=== PATIENT | male | born 1995 | race Caucasian/White ===

== ENCOUNTER 2022-02-23 10:04 | Inpatient (IN) | payer MEDICAID ==
[~2022-02-23] VITALS: Ht 172.7 cm; Wt 70.8 kg
[2022-02-23 10:12] VITALS: BP 152/106
[2022-02-23 10:43] LABS: BASO % 0.3 % (0.0-1.0); EOS # 0.1 10*3/uL (0.0-0.4); EOS % 0.8 % (1.0-4.0); HEMATOCRIT 42.2 % (42.0-52.0); LYMPH # 1.9 10*3/uL (1.3-4.4); MEAN CELL VOLUME 89.8 fl (80.0-94.0); MEAN CORPUSCULAR HGB 31.5 pg (27.0-31.0); MEAN CORPUSCULAR HGB CONC 35.1 g/dl (33.0-37.0); MEAN PLATELET VOLUME 8.7 fl (9.6-12.3); MONO # 0.4 10*3/uL (0.1-1.0); MONO % 5.5 % (3.0-9.0); NEUT % 63.1 % (47.0-73.0); PLATELET COUNT AUTOMATED 84 10*3/uL (130-400); RED CELL DISTRI WIDTH 16.7 % (0-14.5); WHITE BLOOD COUNT 6.3 10*3/uL (4.8-10.8)
[2022-02-23 11:05] LABS: ALKALINE PHOSPHATASE 198 U/L (45-117); BUN 6 mg/dl (7-24); CHLORIDE 109 mmol/L (98-107); CREATININE 0.87 mg/dL (0.70-1.30); LIPASE 201 U/L (73-393); POTASSIUM 3.5 mmol/L (3.5-5.1); SGOT/AST 208 IU/L (3-35); SGPT/ALT 149 U/L (12-78); SODIUM 141 mmol/L (136-145); TOTAL PROTEIN 7.4 gm/dL (6.4-8.2)
[2022-02-23 13:39] LABS: BILIRUBIN Negative (Negative); BLOOD Negative (Negative); CLARITY Clear (Clear); COLOR Dark Yellow (Yellow); GLUCOSE Trace (Negative); KETONE Negative (Negative); LEUKO ESTERASE Negative (Negative); NITRITE Negative (Negative); PH 6.5 (4.5-8.0); SPECIFIC GRAVITY >= 1.030 (1.001-1.030)
[2022-02-23 13:50] LABS: MUCOUS 1+; WBC 0-2 wbc/hpf (0-5)
[2022-02-23 13:51] LABS: BACTERIA 1+
[2022-02-23 13:57] LABS: URINE AMPHETAMINES < 1000 (1000ng/ml); URINE BARBITURATES < 200 (200ng/ml); URINE BENZODIAZEPINES > 200 (200ng/ml); URINE CANNABINOIDS (THC) < 50 (50ng/ml); URINE COCAINE < 300 (300ng/ml); URINE METHADONE < 300 (300ng/ml); URINE OPIATES < 300 (300ng/ml); URINE PHENCYCLIDINE < 25 (25ng/ml)
[2022-02-23 14:50] VITALS: BP 140/82
[2022-02-23 22:00] VITALS: BP 129/79
[2022-02-24] VITALS: BP 130/86
[2022-02-24 05:34] LABS: ALKALINE PHOSPHATASE 160 U/L (45-117); BUN 8 mg/dl (7-24); CHLORIDE 108 mmol/L (98-107); CREATININE 0.84 mg/dL (0.70-1.30); SGOT/AST 195 IU/L (3-35); SGPT/ALT 119 U/L (12-78); SODIUM 140 mmol/L (136-145)
[2022-02-24 06:13] LABS: BASO % 0.3 % (0.0-1.0); EOS # 0.1 10*3/uL (0.0-0.4); EOS % 1.5 % (1.0-4.0); HEMATOCRIT 35.7 % (42.0-52.0); LYMPH # 1.7 10*3/uL (1.3-4.4); LYMPH % 28.7 % (27.0-41.0); MEAN CORPUSCULAR HGB 31.4 pg (27.0-31.0); MEAN CORPUSCULAR HGB CONC 33.6 g/dl (33.0-37.0); MEAN PLATELET VOLUME 10.5 fl (9.6-12.3); MONO # 0.3 10*3/uL (0.1-1.0); MONO % 5.6 % (3.0-9.0); NEUT # 3.7 10*3/uL (2.3-7.9); NEUT % 63.6 % (47.0-73.0); PLATELET COUNT AUTOMATED 61 10*3/uL (130-400); RED BLOOD COUNT 3.82 10*6/uL (4.50-5.90); RED CELL DISTRI WIDTH 16.7 % (0-14.5); WHITE BLOOD COUNT 5.9 10*3/uL (4.8-10.8)
[2022-02-24 06:17] LABS: MEAN CELL VOLUME 93.5 fl (80.0-94.0)
[2022-02-24 08:00] VITALS: BP 139/97
[2022-02-24 12:00] VITALS: BP 113/60
== END 2022-02-24 18:53 | disposition left against medical advice (07) | DRG 770 ==
LOC: ED 10:04 → 4E 11:01 → EDHOLD 11:01 → 4E 13:35
PROVIDERS: Emergency Medicine; Student in an Organized Health Care Education/Training Program; ADMIT Internal Medicine; ATTEND Internal Medicine
DX: F10.239 Alcohol dependence with withdrawal, unspecified (principal); F17.210 Nicotine dependence, cigarettes, uncomplicated; R74.01 Elevation of levels of liver transaminase levels; D64.9 Anemia, unspecified; D69.6 Thrombocytopenia, unspecified; Z53.29 Procedure and treatment not carried out because of patient's decision for other reasons; Z81.1 Family history of alcohol abuse and dependence; Z71.6 Tobacco abuse counseling

== ENCOUNTER 2022-03-28 18:10 | Emergency (ER) | payer MEDICAID ==
[~2022-03-28] VITALS: Wt 68.0 kg
[2022-03-28 20:24] LABS: BASO % 0.4 % (0.0-1.0); EOS # 0.2 10*3/uL (0.0-0.4); EOS % 2.1 % (1.0-4.0); HEMATOCRIT 31.6 % (42.0-52.0); LYMPH # 1.5 10*3/uL (1.3-4.4); LYMPH % 15.8 % (27.0-41.0); MEAN CELL VOLUME 95.2 fl (80.0-94.0); MEAN CORPUSCULAR HGB 32.5 pg (27.0-31.0); MEAN CORPUSCULAR HGB CONC 34.2 g/dl (33.0-37.0); MONO % 10.9 % (3.0-9.0); NEUT # 6.7 10*3/uL (2.3-7.9); NEUT % 70.3 % (47.0-73.0); PLATELET COUNT AUTOMATED 119 10*3/uL (130-400); RED BLOOD COUNT 3.32 10*6/uL (4.50-5.90); RED CELL DISTRI WIDTH 17.2 % (0-14.5); WHITE BLOOD COUNT 9.6 10*3/uL (4.8-10.8)
[2022-03-28 20:44] LABS: BUN 6 mg/dl (7-24); CHLORIDE 109 mmol/L (98-107); POTASSIUM 2.9 mmol/L (3.5-5.1); SGOT/AST 198 IU/L (3-35); SGPT/ALT 215 U/L (12-78); SODIUM 143 mmol/L (136-145); TOTAL PROTEIN 6.4 gm/dL (6.4-8.2)
[2022-03-28 20:45] LABS: ALKALINE PHOSPHATASE 154 U/L (45-117)
== END 2022-03-29 00:46 | disposition home or self-care (01) ==
LOC: ED 18:10
PROVIDERS: Emergency Medicine
DX: R56.9 Unspecified convulsions (principal); E87.6 Hypokalemia; R74.01 Elevation of levels of liver transaminase levels; Z88.8 Allergy status to other drugs, medicaments and biological substances; Z87.891 Personal history of nicotine dependence

== ENCOUNTER 2022-10-18 07:03 | Inpatient (IN) | payer OTHER ==
[~2022-10-18] VITALS: Ht 172.7 cm; Wt 75.0 kg
[2022-10-18 07:20] VITALS: BP 118/70
[2022-10-18 08:00] VITALS: BP 120/59
[2022-10-18 08:21] LABS: BASO % 0.4 % (0.0-1.0); EOS % 0.2 % (1.0-4.0); HEMATOCRIT 36.4 % (42.0-52.0); LYMPH # 1.6 10*3/uL (1.3-4.4); LYMPH % 17.4 % (27.0-41.0); MEAN CELL VOLUME 90.3 fl (80.0-94.0); MEAN CORPUSCULAR HGB CONC 36.5 g/dl (33.0-37.0); MEAN PLATELET VOLUME 11.2 fl (9.6-12.3); MONO # 0.4 10*3/uL (0.1-1.0); MONO % 4.8 % (3.0-9.0); NEUT # 6.8 10*3/uL (2.3-7.9); NEUT % 76.8 % (47.0-73.0); PLATELET COUNT AUTOMATED 94 10*3/uL (130-400); RED BLOOD COUNT 4.03 10*6/uL (4.50-5.90); WHITE BLOOD COUNT 8.9 10*3/uL (4.8-10.8)
[2022-10-18 08:30] LABS: ACT PARTIAL THROMBO TIME 23.6 SECONDS (20.0-32.1); INTERNATIONAL NORM RATIO 1.1 (2.0-3.5)
[2022-10-18 08:41] LABS: ALKALINE PHOSPHATASE 282 U/L (46-116); CHLORIDE 94 mmol/L (98-107); ETHYL ALCOHOL 202.4 mg/dl (<3); LIPASE 59 U/L (12-53); POTASSIUM 2.7 mmol/L (3.4-5.1); SGPT/ALT 194 U/L (10-49); TOTAL PROTEIN 7.2 gm/dL (6.0-8.0)
[2022-10-18 08:49] LABS: BUN < 5 mg/dl (9-23)
[2022-10-18 10:01] LABS: BILIRUBIN Negative (Negative); BLOOD Negative (Negative); CLARITY Clear (Clear); COLOR Yellow (Yellow); GLUCOSE Negative (Negative); KETONE Negative (Negative); LEUKO ESTERASE Negative (Negative); NITRITE Negative (Negative); SPECIFIC GRAVITY <= 1.005 (1.001-1.030); UROBILINOGEN 0.2 E.U./dl (0.0-1.0)
[2022-10-18 10:16] LABS: RBC 0-2 rbc/hpf (0-2)
[2022-10-18 10:17] LABS: EPITHELIAL CELLS 0-2; URINE AMPHETAMINES Negative (1000ng/ml); URINE BARBITURATES Negative (200ng/ml); URINE BENZODIAZEPINES Negative (200ng/ml); URINE CANNABINOIDS (THC) Negative (50ng/ml); URINE COCAINE Negative (300ng/ml); URINE METHADONE Negative (300ng/ml); URINE OPIATES Negative (300ng/ml); URINE PHENCYCLIDINE Negative (25ng/ml)
[2022-10-18 11:52] VITALS: BP 128/73
[2022-10-18 14:55] LABS: BUN < 5 mg/dl (9-23); CHLORIDE 98 mmol/L (98-107); POTASSIUM 3.2 mmol/L (3.4-5.1)
[2022-10-18 16:00] VITALS: BP 160/90
[2022-10-18 20:00] VITALS: BP 149/95
[2022-10-19] VITALS (14 sets, daily range): BP systolic 108–164; BP diastolic 59–103
[2022-10-19 05:30] LABS: CHLORIDE 102 mmol/L (98-107); POTASSIUM 3.4 mmol/L (3.4-5.1)
[2022-10-19 05:35] LABS: BUN < 5 mg/dl (9-23)
[2022-10-19 08:23] LABS: BASO % 0.5 % (0.0-1.0); EOS # 0.1 10*3/uL (0.0-0.4); EOS % 1.1 % (1.0-4.0); LYMPH # 1.7 10*3/uL (1.3-4.4); LYMPH % 26.2 % (27.0-41.0); MEAN CELL VOLUME 93.4 fl (80.0-94.0); MEAN CORPUSCULAR HGB 32.2 pg (27.0-31.0); MEAN CORPUSCULAR HGB CONC 34.5 g/dl (33.0-37.0); MEAN PLATELET VOLUME 11.1 fl (9.6-12.3); MONO # 0.3 10*3/uL (0.1-1.0); MONO % 4.7 % (3.0-9.0); NEUT # 4.3 10*3/uL (2.3-7.9); PLATELET COUNT AUTOMATED 75 10*3/uL (130-400); RED BLOOD COUNT 3.32 10*6/uL (4.50-5.90); RED CELL DISTRI WIDTH 15.6 % (0-14.5); WHITE BLOOD COUNT 6.4 10*3/uL (4.8-10.8)
[2022-10-19 08:44] LABS: TOTAL PROTEIN 6.1 gm/dL (6.0-8.0)
[2022-10-20] VITALS (13 sets, daily range): BP systolic 133–170; BP diastolic 74–108
[2022-10-20 06:08] LABS: HBSAG Negative (Negative); HEP B CORE AB, IGM Negative (Negative); HEPATITIS C ANTIBODY Non Reactive (Non Reactive)
[2022-10-20 06:25] LABS: ALKALINE PHOSPHATASE 224 U/L (46-116); CHLORIDE 106 mmol/L (98-107); CPK 70 U/L (34-171); POTASSIUM 3.6 mmol/L (3.4-5.1); SGPT/ALT 233 U/L (10-49); TOTAL PROTEIN 6.1 gm/dL (6.0-8.0)
[2022-10-20 06:37] LABS: BASO # 0.1 10*3/uL (0.0-0.1); EOS # 0.2 10*3/uL (0.0-0.4); EOS % 3.1 % (1.0-4.0); HEMATOCRIT 32.3 % (42.0-52.0); LYMPH # 1.8 10*3/uL (1.3-4.4); LYMPH % 31.1 % (27.0-41.0); MEAN CELL VOLUME 93.9 fl (80.0-94.0); MEAN CORPUSCULAR HGB 32.3 pg (27.0-31.0); MEAN CORPUSCULAR HGB CONC 34.4 g/dl (33.0-37.0); MEAN PLATELET VOLUME 11.7 fl (9.6-12.3); MONO # 0.4 10*3/uL (0.1-1.0); NEUT # 3.4 10*3/uL (2.3-7.9); NEUT % 57.9 % (47.0-73.0); NUCLEATED RED BLOOD CELL 0.3 % (0.0-0.0); PLATELET COUNT AUTOMATED 97 10*3/uL (130-400); RED BLOOD COUNT 3.44 10*6/uL (4.50-5.90); RED CELL DISTRI WIDTH 15.4 % (0-14.5); WHITE BLOOD COUNT 5.9 10*3/uL (4.8-10.8)
[2022-10-20 06:40] LABS: BUN < 5 mg/dl (9-23)
[2022-10-21] VITALS (12 sets, daily range): BP systolic 121–169; BP diastolic 68–106
[2022-10-21 06:28] LABS: BASO # 0.1 10*3/uL (0.0-0.1); BASO % 0.8 % (0.0-1.0); EOS # 0.2 10*3/uL (0.0-0.4); EOS % 3.3 % (1.0-4.0); HEMATOCRIT 31.8 % (42.0-52.0); LYMPH # 1.5 10*3/uL (1.3-4.4); LYMPH % 25.6 % (27.0-41.0); MEAN CELL VOLUME 94.4 fl (80.0-94.0); MEAN CORPUSCULAR HGB 32.3 pg (27.0-31.0); MEAN CORPUSCULAR HGB CONC 34.3 g/dl (33.0-37.0); MEAN PLATELET VOLUME 10.5 fl (9.6-12.3); MONO # 0.5 10*3/uL (0.1-1.0); NEUT # 3.6 10*3/uL (2.3-7.9); NEUT % 60.5 % (47.0-73.0); PLATELET COUNT AUTOMATED 101 10*3/uL (130-400); RED BLOOD COUNT 3.37 10*6/uL (4.50-5.90); RED CELL DISTRI WIDTH 16.2 % (0-14.5)
[2022-10-21 06:34] LABS: ALKALINE PHOSPHATASE 204 U/L (46-116); BUN 5 mg/dl (9-23); CHLORIDE 101 mmol/L (98-107); POTASSIUM 3.5 mmol/L (3.4-5.1); SGPT/ALT 188 U/L (10-49); TOTAL PROTEIN 6.2 gm/dL (6.0-8.0)
[2022-10-22] VITALS (11 sets, daily range): BP systolic 138–170; BP diastolic 64–113
[2022-10-22 06:06] LABS: ALKALINE PHOSPHATASE 189 U/L (46-116); BUN < 5 mg/dl (9-23); CHLORIDE 106 mmol/L (98-107); POTASSIUM 3.4 mmol/L (3.4-5.1); SGPT/ALT 158 U/L (10-49); TOTAL PROTEIN 6.1 gm/dL (6.0-8.0)
[2022-10-22 06:23] LABS: BASO % 0.7 % (0.0-1.0); EOS # 0.2 10*3/uL (0.0-0.4); EOS % 3.9 % (1.0-4.0); HEMATOCRIT 34.8 % (42.0-52.0); LYMPH # 1.7 10*3/uL (1.3-4.4); LYMPH % 29.6 % (27.0-41.0); MEAN CELL VOLUME 94.1 fl (80.0-94.0); MEAN CORPUSCULAR HGB 32.4 pg (27.0-31.0); MEAN CORPUSCULAR HGB CONC 34.5 g/dl (33.0-37.0); MEAN PLATELET VOLUME 10.2 fl (9.6-12.3); MONO # 0.6 10*3/uL (0.1-1.0); MONO % 11.4 % (3.0-9.0); NEUT % 53.5 % (47.0-73.0); PLATELET COUNT AUTOMATED 121 10*3/uL (130-400); RED CELL DISTRI WIDTH 16.9 % (0-14.5); WHITE BLOOD COUNT 5.6 10*3/uL (4.8-10.8)
[2022-10-23] VITALS (12 sets, daily range): BP systolic 145–175; BP diastolic 59–106
[2022-10-23 06:21] LABS: BASO % 0.7 % (0.0-1.0); EOS # 0.2 10*3/uL (0.0-0.4); EOS % 3.5 % (1.0-4.0); HEMATOCRIT 33.6 % (42.0-52.0); LYMPH # 1.9 10*3/uL (1.3-4.4); LYMPH % 32.1 % (27.0-41.0); MEAN CELL VOLUME 93.3 fl (80.0-94.0); MEAN CORPUSCULAR HGB 32.8 pg (27.0-31.0); MEAN CORPUSCULAR HGB CONC 35.1 g/dl (33.0-37.0); MEAN PLATELET VOLUME 10.4 fl (9.6-12.3); MONO # 0.6 10*3/uL (0.1-1.0); MONO % 10.9 % (3.0-9.0); NEUT % 52.3 % (47.0-73.0); PLATELET COUNT AUTOMATED 131 10*3/uL (130-400); RED CELL DISTRI WIDTH 16.7 % (0-14.5); WHITE BLOOD COUNT 5.8 10*3/uL (4.8-10.8)
[2022-10-23 06:32] LABS: ALKALINE PHOSPHATASE 174 U/L (46-116); CHLORIDE 105 mmol/L (98-107); POTASSIUM 3.5 mmol/L (3.4-5.1); SGPT/ALT 128 U/L (10-49); TOTAL PROTEIN 6.1 gm/dL (6.0-8.0)
[2022-10-23 06:33] LABS: BUN < 5 mg/dl (9-23)
[2022-10-24 00:16] VITALS: BP 155/89
[2022-10-24 02:03] VITALS: BP 155/91
[2022-10-24 04:31] VITALS: BP 155/81
[2022-10-24 05:19] LABS: ALKALINE PHOSPHATASE 151 U/L (46-116); CHLORIDE 105 mmol/L (98-107); SGPT/ALT 98 U/L (10-49)
[2022-10-24 05:26] LABS: BUN < 5 mg/dl (9-23)
[2022-10-24 06:08] VITALS: BP 159/95
[2022-10-24 06:21] LABS: BASO # 0.1 10*3/uL (0.0-0.1); BASO % 0.5 % (0.0-1.0); EOS # 0.2 10*3/uL (0.0-0.4); HEMATOCRIT 32.4 % (42.0-52.0); LYMPH # 1.8 10*3/uL (1.3-4.4); LYMPH % 19.3 % (27.0-41.0); MEAN CELL VOLUME 94.5 fl (80.0-94.0); MEAN CORPUSCULAR HGB 32.4 pg (27.0-31.0); MEAN CORPUSCULAR HGB CONC 34.3 g/dl (33.0-37.0); MEAN PLATELET VOLUME 10.6 fl (9.6-12.3); MONO # 1.1 10*3/uL (0.1-1.0); MONO % 11.6 % (3.0-9.0); NEUT # 6.3 10*3/uL (2.3-7.9); NEUT % 66.2 % (47.0-73.0); PLATELET COUNT AUTOMATED 161 10*3/uL (130-400); RED BLOOD COUNT 3.43 10*6/uL (4.50-5.90); RED CELL DISTRI WIDTH 17.2 % (0-14.5); WHITE BLOOD COUNT 9.5 10*3/uL (4.8-10.8)
[2022-10-24 08:00] VITALS: BP 160/92
[2022-10-24 12:00] VITALS: BP 152/92
== END 2022-10-24 14:22 | disposition home or self-care (01) | DRG 775 ==
LOC: ED 07:03 → EDHOLD 08:37 → ICCU 08:37 → EDHOLD 08:57 → 4E 13:11 → ICCU 10-19 02:44
PROVIDERS: Emergency Medicine; Internal Medicine; Registered Nurse; Student in an Organized Health Care Education/Training Program; ADMIT Internal Medicine; ATTEND Internal Medicine
DX: F10.231 Alcohol dependence with withdrawal delirium (principal); F41.9 Anxiety disorder, unspecified; I10 Essential (primary) hypertension; E87.6 Hypokalemia; R74.01 Elevation of levels of liver transaminase levels; R73.9 Hyperglycemia, unspecified; F17.210 Nicotine dependence, cigarettes, uncomplicated; Z88.8 Allergy status to other drugs, medicaments and biological substances; Z81.1 Family history of alcohol abuse and dependence

== ENCOUNTER 2022-10-24 17:24 | Inpatient (IN) | payer OTHER ==
[~2022-10-24] VITALS: Ht 172.7 cm; Wt 71.8 kg
[2022-10-24 17:29] VITALS: BP 162/104
[2022-10-24 18:14] LABS: BASO % 0.3 % (0.0-1.0); EOS % 0.2 % (1.0-4.0); HEMATOCRIT 36.2 % (42.0-52.0); LYMPH # 1.1 10*3/uL (1.3-4.4); LYMPH % 7.8 % (27.0-41.0); MEAN CELL VOLUME 96.3 fl (80.0-94.0); MEAN CORPUSCULAR HGB 32.2 pg (27.0-31.0); MEAN CORPUSCULAR HGB CONC 33.4 g/dl (33.0-37.0); MEAN PLATELET VOLUME 10.1 fl (9.6-12.3); MONO % 7.2 % (3.0-9.0); NEUT # 11.3 10*3/uL (2.3-7.9); NEUT % 84.1 % (47.0-73.0); RED BLOOD COUNT 3.76 10*6/uL (4.50-5.90); RED CELL DISTRI WIDTH 18.1 % (0-14.5); WHITE BLOOD COUNT 13.4 10*3/uL (4.8-10.8)
[2022-10-24 18:20] LABS: PLATELET COUNT AUTOMATED 204 10*3/uL (130-400)
[2022-10-24 18:33] LABS: ALKALINE PHOSPHATASE 169 U/L (46-116); BUN < 5 mg/dl (9-23); CHLORIDE 107 mmol/L (98-107); ETHYL ALCOHOL 3.3 mg/dl (<3); POTASSIUM 3.3 mmol/L (3.4-5.1); SGPT/ALT 105 U/L (10-49); TOTAL PROTEIN 7.3 gm/dL (6.0-8.0)
[2022-10-24 21:33] LABS: BILIRUBIN Negative (Negative); BLOOD Negative (Negative); CLARITY Clear (Clear); COLOR Yellow (Yellow); GLUCOSE Negative (Negative); KETONE Negative (Negative); LEUKO ESTERASE Negative (Negative); NITRITE Negative (Negative); PH 7.5 (4.5-8.0)
[2022-10-24 21:38] VITALS: BP 148/97
[2022-10-24 21:39] LABS: BACTERIA TRACE; EPITHELIAL CELLS 0-2; RBC 0-2 rbc/hpf (0-2); WBC 0-2 wbc/hpf (0-5)
[2022-10-25 06:21] LABS: HEMATOCRIT 32.5 % (42.0-52.0); MEAN CELL VOLUME 96.2 fl (80.0-94.0); MEAN CORPUSCULAR HGB 32.2 pg (27.0-31.0); MEAN CORPUSCULAR HGB CONC 33.5 g/dl (33.0-37.0); MEAN PLATELET VOLUME 10.5 fl (9.6-12.3); PLATELET COUNT AUTOMATED 227 10*3/uL (130-400); RED BLOOD COUNT 3.38 10*6/uL (4.50-5.90); RED CELL DISTRI WIDTH 18.4 % (0-14.5); WHITE BLOOD COUNT 14.7 10*3/uL (4.8-10.8)
[2022-10-25 06:25] LABS: MANUAL DIFF REFLEX YES
[2022-10-25 06:32] LABS: ALKALINE PHOSPHATASE 139 U/L (46-116); BUN 6 mg/dl (9-23); CHLORIDE 106 mmol/L (98-107); POTASSIUM 3.7 mmol/L (3.4-5.1); SGPT/ALT 81 U/L (10-49); TOTAL PROTEIN 6.3 gm/dL (6.0-8.0)
[2022-10-25 06:57] VITALS: BP 150/94
[2022-10-25 07:15] LABS: POLYCHROMASIA SLIGHT; ROULEAUX SLIGHT; TARGET CELLS FEW; TOTAL CELLS COUNTED 100 #CELLS
[2022-10-25 07:16] LABS: OVALOCYTES FEW; PLATELET SUFFICIENCY NORMAL (NORMAL); SCHISTOCYTES FEW
[2022-10-25 08:38] VITALS: BP 153/93
[2022-10-25 13:26] VITALS: BP 160/90
[2022-10-25 15:05] VITALS: BP 164/94
[2022-10-25 20:00] VITALS: BP 160/96
[2022-10-25 21:45] LABS: URINE AMPHETAMINES Negative (1000ng/ml); URINE BARBITURATES Negative (200ng/ml); URINE BENZODIAZEPINES Negative (200ng/ml); URINE CANNABINOIDS (THC) Negative (50ng/ml); URINE COCAINE Negative (300ng/ml); URINE METHADONE Negative (300ng/ml); URINE OPIATES Negative (300ng/ml); URINE PHENCYCLIDINE Negative (25ng/ml)
[2022-10-26] VITALS: BP 147/89
[2022-10-26 07:36] LABS: BASO # 0.1 10*3/uL (0.0-0.1); BASO % 0.6 % (0.0-1.0); EOS # 0.2 10*3/uL (0.0-0.4); HEMATOCRIT 33.8 % (42.0-52.0); LYMPH # 1.8 10*3/uL (1.3-4.4); LYMPH % 17.5 % (27.0-41.0); MEAN CELL VOLUME 97.7 fl (80.0-94.0); MEAN CORPUSCULAR HGB 32.4 pg (27.0-31.0); MEAN CORPUSCULAR HGB CONC 33.1 g/dl (33.0-37.0); MONO % 10.1 % (3.0-9.0); NEUT # 6.9 10*3/uL (2.3-7.9); NEUT % 69.4 % (47.0-73.0); RED BLOOD COUNT 3.46 10*6/uL (4.50-5.90); RED CELL DISTRI WIDTH 18.5 % (0-14.5)
[2022-10-26 07:37] LABS: PLATELET COUNT AUTOMATED 303 10*3/uL (130-400)
[2022-10-26 07:56] LABS: ALKALINE PHOSPHATASE 134 U/L (46-116); CHLORIDE 107 mmol/L (98-107); POTASSIUM 3.6 mmol/L (3.4-5.1); SGPT/ALT 65 U/L (10-49); TOTAL PROTEIN 6.3 gm/dL (6.0-8.0)
[2022-10-26 08:00] VITALS: BP 163/92
[2022-10-26 08:05] LABS: BUN < 5 mg/dl (9-23)
[2022-10-26 12:00] VITALS: BP 149/91
[2022-10-26 16:00] VITALS: BP 157/93
[2022-10-26 20:00] VITALS: BP 168/94
[2022-10-27] VITALS: BP 180/92
[2022-10-27 03:10] VITALS: BP 168/92
[2022-10-27 08:00] VITALS: BP 160/95
[2022-10-27 08:06] LABS: BASO # 0.1 10*3/uL (0.0-0.1); BASO % 1.1 % (0.0-1.0); EOS # 0.2 10*3/uL (0.0-0.4); EOS % 2.8 % (1.0-4.0); HEMATOCRIT 34.5 % (42.0-52.0); LYMPH # 1.9 10*3/uL (1.3-4.4); LYMPH % 22.6 % (27.0-41.0); MEAN CELL VOLUME 98.3 fl (80.0-94.0); MEAN CORPUSCULAR HGB 31.9 pg (27.0-31.0); MEAN CORPUSCULAR HGB CONC 32.5 g/dl (33.0-37.0); MEAN PLATELET VOLUME 10.1 fl (9.6-12.3); MONO # 0.9 10*3/uL (0.1-1.0); MONO % 10.6 % (3.0-9.0); NEUT # 5.2 10*3/uL (2.3-7.9); NEUT % 62.5 % (47.0-73.0); PLATELET COUNT AUTOMATED 374 10*3/uL (130-400); RED BLOOD COUNT 3.51 10*6/uL (4.50-5.90); WHITE BLOOD COUNT 8.2 10*3/uL (4.8-10.8)
[2022-10-27 08:50] LABS: ALKALINE PHOSPHATASE 116 U/L (46-116); CHLORIDE 110 mmol/L (98-107); POTASSIUM 3.7 mmol/L (3.4-5.1); SGPT/ALT 47 U/L (10-49); TOTAL PROTEIN 5.8 gm/dL (6.0-8.0)
[2022-10-27 09:04] LABS: BUN < 5 mg/dl (9-23)
[2022-10-27 12:00] VITALS: BP 158/107
[2022-10-27] MEDS ORDERED: AMLODIPINE BESYL5 MG PO (16:54)
[2022-10-27] MEDS ORDERED: ONDANSETRON4 MG SL (16:54)
[2022-10-27] MEDS ORDERED: VISTARIL25 MG PO (16:54)
[2022-10-27] MEDS ORDERED: LISINOPRIL10 M1 PO (16:54)
== END 2022-10-27 17:22 | disposition home or self-care (01) | DRG 775 ==
LOC: ED 17:24 → EDHOLD 18:34 → 5E 18:34
PROVIDERS: Family Medicine; Internal Medicine; Student in an Organized Health Care Education/Training Program; ADMIT Emergency Medicine; ATTEND Emergency Medicine
DX: F10.139 Alcohol abuse with withdrawal, unspecified (principal); R65.10 Systemic inflammatory response syndrome (SIRS) of non-infectious origin without acute organ dysfunction; E87.6 Hypokalemia; K76.0 Fatty (change of) liver, not elsewhere classified; R73.9 Hyperglycemia, unspecified; R74.01 Elevation of levels of liver transaminase levels; I10 Essential (primary) hypertension; F17.210 Nicotine dependence, cigarettes, uncomplicated; D53.9 Nutritional anemia, unspecified; R56.9 Unspecified convulsions; Y90.9 Presence of alcohol in blood, level not specified; Z71.6 Tobacco abuse counseling; Z79.899 Other long term (current) drug therapy

== ENCOUNTER 2023-02-20 05:32 | Inpatient (IN) | payer OTHER ==
[~2023-02-20] VITALS: Ht 177.8 cm; Wt 74.8 kg
[~2023-02-20 05:32] MED LIST: AMLODIPINE BESYL5 MG PO; LISINOPRIL10 M1 PO; ONDANSETRON4 MG SL; VISTARIL25 MG PO
[2023-02-20 06:26] LABS: BASO # 0.1 10*3/uL (0.0-0.1); BASO % 0.8 % (0.0-1.0); EOS # 0.2 10*3/uL (0.0-0.4); HEMATOCRIT 36.7 % (42.0-52.0); LYMPH # 1.8 10*3/uL (1.3-4.4); LYMPH % 23.8 % (27.0-41.0); MEAN CELL VOLUME 94.6 fl (80.0-94.0); MEAN CORPUSCULAR HGB 31.7 pg (27.0-31.0); MEAN CORPUSCULAR HGB CONC 33.5 g/dl (33.0-37.0); MEAN PLATELET VOLUME 9.9 fl (9.6-12.3); MONO # 0.7 10*3/uL (0.1-1.0); MONO % 9.3 % (3.0-9.0); NEUT # 4.8 10*3/uL (2.3-7.9); NEUT % 63.2 % (47.0-73.0); PLATELET COUNT AUTOMATED 460 10*3/uL (130-400); RED BLOOD COUNT 3.88 10*6/uL (4.50-5.90); RED CELL DISTRI WIDTH 18.9 % (0-14.5); WHITE BLOOD COUNT 7.6 10*3/uL (4.8-10.8)
[2023-02-20 06:39] LABS: ALKALINE PHOSPHATASE 163 U/L (46-116); CHLORIDE 106 mmol/L (98-107); ETHYL ALCOHOL 33.6 mg/dl (<3); POTASSIUM 3.7 mmol/L (3.4-5.1); SGPT/ALT 108 U/L (10-49); TOTAL PROTEIN 6.8 gm/dL (6.0-8.0)
[2023-02-20 06:45] LABS: BUN < 5 mg/dl (9-23)
[2023-02-20 08:00] VITALS: BP 139/88
[2023-02-20 11:20] VITALS: BP 151/87
[2023-02-20] MEDS ORDERED: LORAZEPAM0.5 M1 PO (12:01)
[2023-02-20 12:02] LABS: INTERNATIONAL NORM RATIO 0.9 (2.0-3.5)
[2023-02-20] MEDS ORDERED: 'CLONIDINE0.1 MG PO (12:03)
[2023-02-20] MEDS ORDERED: METOPROLOL SUCC50 M1 PO (12:03)
[2023-02-20 12:14] LABS: LIPASE 54 U/L (12-53)
[2023-02-20 12:21] LABS: VALPROIC ACID (DEPAKENE) < 3.0 ug/ml (50-100)
[2023-02-20 20:00] VITALS: BP 136/83
[2023-02-21] VITALS: BP 138/88
[2023-02-21 04:00] VITALS: BP 129/83
[2023-02-21 06:39] LABS: BASO # 0.1 10*3/uL (0.0-0.1); BASO % 1.1 % (0.0-1.0); EOS # 0.1 10*3/uL (0.0-0.4); EOS % 0.8 % (1.0-4.0); HEMATOCRIT 33.2 % (42.0-52.0); LYMPH # 1.7 10*3/uL (1.3-4.4); MEAN CELL VOLUME 95.7 fl (80.0-94.0); MEAN CORPUSCULAR HGB CONC 33.4 g/dl (33.0-37.0); MEAN PLATELET VOLUME 9.8 fl (9.6-12.3); MONO # 0.9 10*3/uL (0.1-1.0); NEUT # 5.1 10*3/uL (2.3-7.9); NEUT % 64.7 % (47.0-73.0); PLATELET COUNT AUTOMATED 398 10*3/uL (130-400); RED BLOOD COUNT 3.47 10*6/uL (4.50-5.90); RED CELL DISTRI WIDTH 18.9 % (0-14.5); WHITE BLOOD COUNT 7.9 10*3/uL (4.8-10.8)
[2023-02-21 07:21] LABS: ALKALINE PHOSPHATASE 153 U/L (46-116); CHLORIDE 109 mmol/L (98-107); POTASSIUM 3.6 mmol/L (3.4-5.1); SGPT/ALT 81 U/L (10-49); TOTAL PROTEIN 6.1 gm/dL (6.0-8.0)
[2023-02-21 07:23] LABS: BUN < 5 mg/dl (9-23)
[2023-02-21 08:00] VITALS: BP 131/92
[2023-02-21 12:00] VITALS: BP 119/92
[2023-02-21 16:00] VITALS: BP 141/88
[2023-02-21 20:00] VITALS: BP 122/69
[2023-02-21 23:36] LABS: BILIRUBIN Negative (Negative); BLOOD Negative (Negative); CLARITY Clear (Clear); COLOR Yellow (Yellow); GLUCOSE Negative (Negative); KETONE Negative (Negative); LEUKO ESTERASE Negative (Negative); NITRITE Negative (Negative); SPECIFIC GRAVITY <= 1.005 (1.001-1.030); UROBILINOGEN 0.2 E.U./dl (0.0-1.0)
[2023-02-21 23:44] LABS: URINE AMPHETAMINES Negative (1000ng/ml); URINE BARBITURATES Negative (200ng/ml); URINE BENZODIAZEPINES Negative (200ng/ml); URINE CANNABINOIDS (THC) Negative (50ng/ml); URINE COCAINE Negative (300ng/ml); URINE METHADONE Negative (300ng/ml); URINE OPIATES Negative (300ng/ml); URINE PHENCYCLIDINE Negative (25ng/ml)
[2023-02-22] VITALS: BP 130/78
[2023-02-22 05:04] LABS: ALKALINE PHOSPHATASE 146 U/L (46-116); CHLORIDE 108 mmol/L (98-107); POTASSIUM 3.7 mmol/L (3.4-5.1); SGPT/ALT 68 U/L (10-49); TOTAL PROTEIN 6.2 gm/dL (6.0-8.0)
[2023-02-22 05:09] LABS: BUN < 5 mg/dl (9-23)
[2023-02-22 06:35] LABS: BASO # 0.1 10*3/uL (0.0-0.1); BASO % 1.8 % (0.0-1.0); EOS # 0.1 10*3/uL (0.0-0.4); EOS % 1.8 % (1.0-4.0); HEMATOCRIT 34.1 % (42.0-52.0); LYMPH # 2.1 10*3/uL (1.3-4.4); LYMPH % 30.6 % (27.0-41.0); MEAN CELL VOLUME 96.6 fl (80.0-94.0); MEAN CORPUSCULAR HGB 32.3 pg (27.0-31.0); MEAN CORPUSCULAR HGB CONC 33.4 g/dl (33.0-37.0); MEAN PLATELET VOLUME 10.5 fl (9.6-12.3); MONO # 0.6 10*3/uL (0.1-1.0); MONO % 9.4 % (3.0-9.0); NEUT # 3.8 10*3/uL (2.3-7.9); NEUT % 56.1 % (47.0-73.0); PLATELET COUNT AUTOMATED 386 10*3/uL (130-400); RED BLOOD COUNT 3.53 10*6/uL (4.50-5.90); RED CELL DISTRI WIDTH 18.7 % (0-14.5); WHITE BLOOD COUNT 6.7 10*3/uL (4.8-10.8)
[2023-02-22 08:00] VITALS: BP 145/58
[2023-02-22 12:00] VITALS: BP 137/78
[2023-02-22] MEDS ORDERED: ATIVAN0.5 MG PO ×2 (12:54→13:43)
== END 2023-02-22 12:55 | disposition home or self-care (01) | DRG 53 ==
LOC: ED 05:32 → ICCU 10:31 → EDHOLD 10:31 → ICCU 11:09
PROVIDERS: Family Medicine; Internal Medicine; ADMIT Internal Medicine; ATTEND Internal Medicine
DX: G40.89 Other seizures (principal); N17.0 Acute kidney failure with tubular necrosis; E43 Unspecified severe protein-calorie malnutrition; F10.230 Alcohol dependence with withdrawal, uncomplicated; D53.9 Nutritional anemia, unspecified; F41.1 Generalized anxiety disorder; K21.9 Gastro-esophageal reflux disease without esophagitis; K76.0 Fatty (change of) liver, not elsewhere classified; I10 Essential (primary) hypertension; F10.229 Alcohol dependence with intoxication, unspecified; Y90.9 Presence of alcohol in blood, level not specified; D75.839 Thrombocytosis, unspecified; R73.9 Hyperglycemia, unspecified; E83.42 Hypomagnesemia; Z71.6 Tobacco abuse counseling; Z79.899 Other long term (current) drug therapy; Z81.1 Family history of alcohol abuse and dependence; Z68.23 Body mass index [BMI] 23.0-23.9, adult

== ENCOUNTER 2023-12-20 16:27 | Emergency (ER) | payer OTHER ==
[~2023-12-20] VITALS: Ht 172.7 cm; Wt 72.6 kg
[~2023-12-20 16:27] MED LIST changes: +'CLONIDINE0.1 MG PO; +ATIVAN0.5 MG PO; +DULOXETINE HCL60 MG PO; +LISINOPRIL40 MG PO; +LORAZEPAM0.5 M1 PO; +METOPROLOL SUCC50 M1 PO; +NATURE'S BLEND F1 MG PO; +NATURE'S BLEND100 M2 PO; +POTASSIUM CHLO20 ME4 PO; +TAB-A-VITE TA400 MCG PO; +VANCOMYCIN HCL125 MG PO; +VITAMIN D250 MCG PO
[2023-12-20 16:35] VITALS: BP 153/102
[2023-12-20] MEDS ORDERED: LORazepam 2 MG/ML VIAL IV PRN ×3 (17:05→22:00)
[2023-12-20] MEDS ORDERED: MULTIVITAMIN CONCENTRATE (IV) 10 ML,Thiamine 100 MG,FOLIC ACID 1 MG in SODIUM CHLORIDE ... IV ONE (17:05)
[2023-12-20 17:20] LABS: BASO % 0.3 % (0.0-1.0); EOS % 0.3 % (1.0-4.0); HEMATOCRIT 38.2 % (42.0-52.0); LYMPH % 11.1 % (27.0-41.0); MEAN CELL VOLUME 91.4 fl (80.0-94.0); MEAN CORPUSCULAR HGB 31.6 pg (27.0-31.0); MEAN CORPUSCULAR HGB CONC 34.6 g/dl (33.0-37.0); MEAN PLATELET VOLUME 9.4 fl (9.6-12.3); MONO # 0.5 10*3/uL (0.1-1.0); MONO % 5.4 % (3.0-9.0); NEUT # 7.7 10*3/uL (2.3-7.9); NEUT % 82.7 % (47.0-73.0); PLATELET COUNT AUTOMATED 151 10*3/uL (130-400); RED BLOOD COUNT 4.18 10*6/uL (4.50-5.90); WHITE BLOOD COUNT 9.3 10*3/uL (4.8-10.8)
[2023-12-20 17:29] LABS: ACT PARTIAL THROMBO TIME 25.8 SECONDS (20.0-32.1)
[2023-12-20 17:37] LABS: ALKALINE PHOSPHATASE 144 U/L (46-116); BUN 8 mg/dl (9-23); CHLORIDE 106 mmol/L (98-107); LIPASE 35 U/L (12-53); POTASSIUM 3.4 mmol/L (3.4-5.1); SGPT/ALT 20 U/L (5-49); TOTAL PROTEIN 7.3 gm/dL (6.0-8.0)
[2023-12-20 17:43] LABS: ETHYL ALCOHOL < 3.0 mg/dl (<3)
[2023-12-20] MEDS ORDERED: ACETAMINOPHEN 650 MG SUPP R PRN (19:00)
[2023-12-20] MEDS ORDERED: BISACODYL 10 MG SUPP R PRN (19:00)
[2023-12-20] MEDS ORDERED: BISACODYL 5 MG TAB PO PRN (19:00)
[2023-12-20] MEDS ORDERED: Magnesium Hydroxide 30 ML UDC PO PRN (19:00)
[2023-12-20 19:14] VITALS: BP 154/100
[2023-12-20] MEDS ORDERED: hydrOXYzine 50 MG CAP PO PRN (19:15)
[2023-12-20] MEDS ORDERED: METHOCARBAMOL 750 MG TAB PO PRN (19:15)
[2023-12-20] MEDS ORDERED: Water, Sterile 10 ML VIAL IV PRN (19:15)
[2023-12-20] MEDS ORDERED: Dicyclomine Hydrochloride 20 MG TAB PO PRN (19:15)
[2023-12-20 19:22] LABS: BILIRUBIN Negative (Negative); BLOOD Negative (Negative); CLARITY Clear (Clear); COLOR Yellow (Yellow); GLUCOSE Negative (Negative); KETONE Negative (Negative); LEUKO ESTERASE Negative (Negative); NITRITE Negative (Negative); PH 7.5 (4.5-8.0); SPECIFIC GRAVITY <= 1.005 (1.001-1.030); UROBILINOGEN 0.2 E.U./dl (0.0-1.0)
[2023-12-20 19:29] LABS: RBC 0-2 rbc/hpf (0-2)
[2023-12-20 19:30] LABS: URINE AMPHETAMINES Negative (1000ng/ml); URINE BARBITURATES Negative (200ng/ml); URINE BENZODIAZEPINES Negative (200ng/ml); URINE CANNABINOIDS (THC) Negative (50ng/ml); URINE COCAINE Negative (300ng/ml); URINE METHADONE Negative (300ng/ml); URINE OPIATES Negative (300ng/ml); URINE PHENCYCLIDINE Negative (25ng/ml)
[2023-12-20] MEDS ORDERED: LORazepam 1 MG TAB PO SCH (20:00)
[2023-12-20] MEDS ORDERED: HALOPERIDOL0.5 MG PO (20:26)
[2023-12-20] MEDS ORDERED: HYDROXYZINE PAM50 MG PO (20:26)
[2023-12-20] MEDS ORDERED: Nicotine 21 MG PATCH T SCH (21:01)
[2023-12-20 21:30] VITALS: BP 154/90
[2023-12-21] MEDS ORDERED: MULTIVITAMIN 1 TAB TAB PO SCH (10:00)
[2023-12-21] MEDS ORDERED: Thiamine 100 MG TAB PO SCH (10:00)
[2023-12-21] MEDS ORDERED: Enoxaparin Sodium 40 MG/0.4 ML SYR SC SCH (10:00)
[2023-12-21] MEDS ORDERED: FOLIC ACID 1 MG TAB PO SCH (10:00)
[2023-12-21] MEDS ORDERED: LORazepam 1 MG TAB PO SCH (22:00)
[2023-12-23] MEDS ORDERED: LORazepam 1 MG TAB PO PRN
== END 2023-12-20 21:57 | disposition admitted as inpatient to this hospital (09) ==
LOC: ED 16:27 → EDHOLD 18:32
PROVIDERS: Internal Medicine
DX: F10.239 Alcohol dependence with withdrawal, unspecified (principal); R25.1 Tremor, unspecified; R56.9 Unspecified convulsions; R00.0 Tachycardia, unspecified; D64.9 Anemia, unspecified; R74.8 Abnormal levels of other serum enzymes; Z71.6 Tobacco abuse counseling; F17.210 Nicotine dependence, cigarettes, uncomplicated; R20.2 Paresthesia of skin; R11.2 Nausea with vomiting, unspecified; R19.7 Diarrhea, unspecified; F41.9 Anxiety disorder, unspecified; F32.A Depression, unspecified; I10 Essential (primary) hypertension; K21.9 Gastro-esophageal reflux disease without esophagitis; Z88.8 Allergy status to other drugs, medicaments and biological substances; Z79.2 Long term (current) use of antibiotics; Z79.899 Other long term (current) drug therapy; Z96.22 Myringotomy tube(s) status; Y90.0 Blood alcohol level of less than 20 mg/100 ml